=== PATIENT | female | born 1995 | race Caucasian/White ===

== ENCOUNTER 2020-02-24 13:29 | Outpatient (REF) | payer OTHER, SELFPAY ==
[2020-02-24 14:54] LABS: SARS COV2 PCR INHOUSE NEGATIVE (Negative)
== END 2020-02-24 13:30 | disposition home or self-care (01) ==
LOC: HO.LAB 13:29
PROVIDERS: Visit Provider Internal Medicine
DX: Z20.828 Contact with and (suspected) exposure to other viral communicable diseases (principal)
CPT/HCPCS: 36415; 87635